=== PATIENT | male | born 2000 | race Caucasian/White ===

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

== ENCOUNTER 2020-04-14 10:40 | Emergency (ER) | payer OTHER ==
[~2020-04-14] VITALS: Ht 172.7 cm; Wt 79.1 kg
[2020-04-14] MEDS ORDERED: IV NORMAL SALINE 1,000ML 1,000 ML IV ONE (11:00)
[2020-04-14] MEDS ORDERED: KETOROLAC 15 MG/ML VIAL. IVP ONE (11:00)
--- NOTE | 2020-04-14 11:09 | EKG ---
[address] [address] Test Date: 2020-04-14 Test Time: 11:01:35 Pat Name: MADELYN COSTELLO Department: Room: Gender: M Sales Advisor: MANDY : 2000 Requested By: EBONIE HINTON Order Number: [id number] Reading MD: Measurements Intervals [place] Rate: 72 P: 39 NH: 176 QRS: 65 QRSD: 88 T: 24 QT: 354 QTc: 389 Interpretive Statements SINUS RHYTHM OTHERWISE NORMAL ECG RI6.02 No previous ECG available for comparison
[2020-04-14] MEDS ORDERED: PRED20TA PO (11:21)
--- NOTE | 2020-04-14 11:22 | PHYS DOC ---
Past History Past Medical History: No Pertinent History Past Surgical History: No Surgical History Smoking: Non-smoker Alcohol Use: None Drug Use: None General Adult EDM: Chief Complaint: CHEST PAIN HPI: HPI: 19-year-old male presents with several week history of intermittent chest discomfort primarily to lower left chest wall. Patient reports he had originally seen his doctor for this after testing positive for COVID-19 and underwent a EKG and got some blood work drawn. Patient reports his PCP was concerned that his EKG might be showing some abnormalities which might be secondary to a "heart attack, blood clot, or pericarditis." Patient reports symptoms continued and are worse today and therefore his PCP instructed patient to present immediately to the ER for further evaluation. Patient denies any known cardiac disease. Denies history of DVT/PE. Denies leg swelling or calf tenderness. Patient does report his blood pressure typically is elevated but he was never started on any blood pressure medication or given a diagnosis of hypertension. Denies fever or chills. Denies cough. Review of Systems: Review of Systems: Constitutional: Denies fever or chills Eyes: Denies redness or eye pain HENT: Denies nasal congestion or sore throat Respiratory: Denies cough or shortness of breath Cardiovascular: Reports chest pain; denies palpitations GI: Denies abdominal pain, nausea, or vomiting : Denies dysuria or hematuria Musculoskeletal: Denies back pain or joint pain Integument: Denies rash or skin lesions Neurologic: Denies headache, focal weakness or sensory changes Complete systems were reviewed and found to be within normal limits, except as documented in this note. Current Medications: Current Meds: Current Medications Medications (Trade) Dose Ordered Sig/[facility] Start Time Stop Time Status Last Admin Dose Admin Ketorolac Tromethamine (Toradol 15mg Vial) 15 mg 1X ONCE 04/14/20 11:00 04/14/20 11:01 DC Sodium Chloride 1,000 ml @ 1,000 mls/hr 1X ONCE 04/14/20 11:00 04/14/20 11:59 Allergies: Allergies: Allergies Coded Allergies Type Severity Reaction Last Updated Verified No Known Drug Allergies 04/30/18 No Physical Exam: PE: Constitutional: Well developed, well nourished, no acute distress, non-toxic appearance HENT: Normocephalic, atraumatic Eyes: Conjunctiva normal, no discharge Neck: Normal range of motion, no tenderness, supple Lungs & Thorax: No respiratory distress, equal chest rise and fall, left anterior chest wall tender to palpation which reproduces patient's pain Abdomen: Soft, no tenderness Skin: Warm, dry, no erythema, no rash Extremities: No tenderness, ROM intact, no edema Neurologic: Alert and oriented X 3, normal motor function, normal sensory function, no focal deficits noted Psychologic: Affect anxious, judgment normal Current Patient Data: Vital Signs: Vital Signs Date Time Temp Pulse Resp B/P (MAP) Pulse Ox O2 Delivery O2 Flow Rate FiO2 04/14/20 10:49 97.8 74 16 116/80 (92) 98 Room Air EKG: EKG: @1101 NSR at 72bpm, NO STEMI, J point noted at V2-V4, no reciprocal changes, t wave inversion III, QRS 88ms, QT/QTc 354/389ms Radiology/Procedures: Radiology/Procedures: [] Heart Score: HEART Score for Chest Pain: HEART Score for Chest Pain Response (Comments) Value History Slighlty/Non-Suspicious 0 ECG Normal 0 Age < 45 0 Risk Factors No Risk Factors 0 Troponin < Normal Limit 0 Total 0 Risk Factors: Risk Factors: DM, Current or recent (<one month) smoker, HTN, HLP, family hist ory of CAD, obesity. Risk Scores: Score 0 - 3: 2.5% MACE over next 6 weeks - Discharge Home Score 4 - 6: 20.3% MACE over next 6 weeks - Admit for Clinical Observation Score 7 - 10: 72.7% MACE over next 6 weeks - Early Invasive Strategies Course & Med Decision Making: Course & Med Decision Making Pertinent Labs and Imaging studies reviewed. (See chart for details) Patient presents with atypical chest pain. Chest pain is reproducible with palpation of chest wall. EKG obtained without acute signs of ischemia. There is some J-point elevation appreciated. Labs obtained and posted to chart. Troponin within normal limits. D-dimer also within normal limits. Chest x-ray without acute process. Symptomatic treatment provided. Patient stable for discharge with outpatient follow-up with PCP. Discussed findings and plan with patient, who acknowledges understanding and agreement. Ehsan Disclaimer: Ehsan Disclaimer: This electronic medical record was generated, in whole or in part, using a voice recognition dictation system. Departure Departure: Impression: Primary Impression: Atypical chest pain Disposition: 01 DC HOME SELF CARE/HOMELESS Condition: STABLE Referrals: PCP,NO (PCP) Patient Instructions: Chest Pain (Nonspecific), [id number], Chest Wall Pain, [id number] Additional Instructions: Take over the counter Tylenol and/or Ibuprofen for pain or discomfort. Scripts Prednisone (PREDNISONE) 20 Mg Tablet 1 TAB PO DAILY for Costochondritis, #10 TAB Prov: EBONIE HINTON DO 04/14/20 EBONIE HINTON DO Apr 14, 2020 11:21
[2020-04-14 11:35] LABS: BASO % 1 % (0-3); EOS # 0.1 x10^3/uL (0.0-0.7); EOS % 2 % (0-3); HEMATOCRIT 44.8 % (39.0-53.0); HEMOGLOBIN 15.3 g/dL (13.0-17.5); LYMPH # 1.2 x10^3/uL (1.0-4.8); LYMPH % 28 % (24-48); MEAN CORPUSCULAR HEMOGLOBIN 32 pg (25-35); MEAN CORPUSCULAR HGB CONC 34 g/dL (31-37); MEAN CORPUSCULAR VOLUME 92 fL (79-100); MONO # 0.4 x10^3/uL (0.0-1.1); MONO % 10 % (0-9); NEUT # 2.6 x10^3uL (1.8-7.7); NEUT % 60 % (31-73); PLATELET COUNT 206 x10^3/uL (140-400); RED BLOOD COUNT 4.87 x10^6/uL (4.30-5.70); RED CELL DISTRIBUTION WIDTH 13.3 % (11.5-14.5); WHITE BLOOD COUNT 4.4 x10^3/uL (4.0-11.0)
[2020-04-14 11:42] LABS: CALCIUM 8.5 mg/dL (8.5-10.1); GFR 95.3; POTASSIUM 4.2 mmol/L (3.5-5.1)
[2020-04-14 12:15] LABS: ALBUMIN 4.1 g/dL (3.4-5.0); ALBUMIN/GLOBULIN RATIO 1.4 (1.0-1.7); TOTAL BILIRUBIN 0.5 mg/dL (0.2-1.0)
[2020-04-14 12:55] VITALS: BP 114/72
--- NOTE | 2020-04-14 13:34 | RAD ---
PA and lateral chest. HISTORY: Chest pain PA and lateral views were taken of the chest. There is no pneumothorax or pleural effusion. Heart is normal in size. Lungs are clear. IMPRESSION: 1. No acute chest disease. Electronically signed by: Jg Jimenez MD (04/14/2020 1:31 PM) [id number]
== END 2020-04-14 12:55 | disposition home or self-care (01) ==
LOC: ER 10:40
DX: R07.89 Other chest pain (principal)
CPT/HCPCS: 36415; 71046; 80053; 82553; 83690; 83735; 83880; 84484; 85025; 85379; 85610; 85730; 93005; 96361; 96374; 99285; J1885; J7030